=== PATIENT | male | born 1940 | race Caucasian/White ===

== ENCOUNTER 2016-08-05 14:55 | Emergency (ER) | payer OTHER ==
[2016-08-05 14:59] VITALS: RESP 18; TEMP 98.1
--- NOTE | 2016-08-05 15:07 | CPEKG ---
Heart Rate: 94 RR Interval: 638 QRSD Interval: 98 QT Interval: 416 QTC Interval: 521 QRS [place]: 7 T Wave [place]: 56 EKG Severity - ABNORMAL ECG - EKG Impression: ATRIAL FLUTTER, A-RATE 272 EKG Impression: BORDERLINE INFERIOR Q WAVES EKG Impression: BORDERLINE PROLONGED QT INTERVAL Electronically Signed By: Sofia Kern 05-Aug-2016 23:00:17
--- NOTE | 2016-08-05 15:57 | CPEKG ---
Heart Rate: 79 RR Interval: 759 P-R Interval: 192 QRSD Interval: 82 QT Interval: 380 QTC Interval: 436 P [place]: 63 QRS [place]: 14 T Wave [place]: 51 EKG Severity - NORMAL ECG - EKG Impression: SINUS RHYTHM Electronically Signed By: Sofia Kern 05-Aug-2016 23:00:17
--- NOTE | 2016-08-05 16:08 | EDPHY ---
H & P Time Seen by Provider: 08/05/16 15:45 HPI/ROS: CHIEF COMPLAINT: Palpitations HISTORY OF PRESENT ILLNESS: The patient is a 76-year-old male who presents emergency department with palpitations. He states he has a history of atrial fibrillation. He has had ablation x3. He currently takes propranolol 20 mg twice daily. Patient states he forgot to take his propranolol this morning. He took his 1st dose of propranolol at lunchtime. At 2:00 p.m. his symptoms started. He took a 2nd dose of propranolol 20 mg. Patient describes palpitations with no chest pain or shortness of breath. No nausea, vomiting or diaphoresis. Patient has had some mild left shoulder tingling. He is not sure if it is from the palpitations or from helping his friend move recently. No leg pain or swelling. No recent alcohol use. When I evaluated the patient he denies palpitations. His symptoms have resolved. REVIEW OF SYSTEMS: My complete review of systems is negative except as mentioned in the HPI. Past Medical/Surgical History: Atrial fibrillation Past surgical history: Includes ablation Social history: The patient drinks occasionally. Smoking Status: Never smoked Physical Exam: Vitals noted. Heart rate 124. 111/65. Triage When I entered the room the patient appeared to be in sinus rhythm. His heart rate was in the 80s. GENERAL: Well-appearing, in no acute distress, alert. HEENT: Eyes normal to inspection, normal pharynx, no signs of dehydration. NECK: No thyromegaly, no lymphadenopathy, supple. RESPIRATORY: Clear to auscultation bilaterally, no rales, rhonchi or wheezing. CVS: Regular rate and rhythm, no rubs, murmurs, or gallops. ABDOMEN: Soft, nontender, nondistended, no organomegaly. BACK: Normal to inspection, no CVA tenderness. SKIN: Normal color, no rash, warm, dry. No pallor. EXTREMITIES: No pedal edema, no calf tenderness, no Homans sign or cords, no joint swelling. NEURO/PSYCH: Alert and oriented, normal mood and affect, normal motor sensory exam. Constitutional: Initial Vital Signs Temperature (C) 36.7 C 08/05/16 14:56 Heart Rate 124 H 08/05/16 14:56 Respiratory Rate 18 08/05/16 14:56 Blood Pressure 111/65 08/05/16 14:56 O2 Sat (%) 93 08/05/16 14:56 O2 Delivery Mode Room Air Allergies/Adverse Reactions: No Known Allergies Allergy (Unverified 08/05/16 14:59) Home Medications: Medication Instructions Recorded Aspirin [Aspirin 81mg (*)] 162 mg PO DAILY 08/05/16 Propranolol HCl [Inderal 40mg (*)] 40 mg PO 08/05/16 Simvastatin [Zocor] 40 mg PO 08/05/16 Medical Decision Making ED Course/Re-evaluation: In the emergency department I discussed possible etiologies with the patient. Patient had initial EKG and then a repeat when he felt his symptoms resolved. EKG shows atrial flutter at 94, normal axis, normal intervals]. There are no ST or T-wave abnormalities. Repeat EKG: EKG shows normal sinus rhythm, normal rate, normal axis, normal intervals. There are no ST or T-wave abnormalities. EKG is normal as interpreted by me. I discussed the case with Dr. Quintana. She feels comfortable having the patient discharged home if his laboratory studies are normal. She will discuss anticoagulation with the patient. Patient's laboratory studies were unremarkable. Troponin was negative. 1640: I discussed the results with the patient. I answered all his questions. He feels comfortable with discharge. He will follow up with Dr. Quintana. Differential Diagnosis: My differential includes but is not limited to atrial fibrillation, atrial flutter, missed medication dose, electrolyte abnormality, sugar abnormality, ACS , acute OR, pulmonary embolus, thyroid disease - Data Points Laboratory Results: Laboratory Results 08/05/16 15:05 08/05/16 15:05 08/05/16 08/05/16 15:05 15:05 WBC 5.94 10^3/uL 10^3/uL (3.80-9.50) RBC 5.23 10^6/uL 10^6/uL (4.40-6.38) Hgb 16.0 g/dL g/dL (13.7-17.5) Hct 48.0 % % (40.0-51.0) MCV 91.8 fL fL (81.5-99.8) MCH 30.6 pg pg (27.9-34.1) MCHC 33.3 g/dL g/dL (32.4-36.7) RDW 13.0 % % (11.5-15.2) Plt Count 186 10^3/uL 10^3/uL (150-400) MPV 10.8 fL fL (8.7-11.7) Neut % (Auto) 62.1 % % (39.3-74.2) Lymph % (Auto) 21.0 % % (15.0-45.0) [place] % (Auto) 12.5 % % (4.5-13.0) Eos % (Auto) 2.5 % % (0.6-7.6) Baso % (Auto) 1.2 % % (0.3-1.7) Nucleat RBC Rel Count 0.0 % % (0.0-0.2) Absolute Neuts (auto) 3.69 10^3/uL 10^3/uL (1.70-6.50) Absolute Lymphs (auto) 1.25 10^3/uL 10^3/uL (1.00-3.00) Absolute Monos (auto) 0.74 10^3/uL 10^3/uL (0.30-0.80) Absolute Eos (auto) 0.15 10^3/uL 10^3/uL (0.03-0.40) Absolute Basos (auto) 0.07 10^3/uL 10^3/uL (0.02-0.10) Absolute Nucleated RBC 0.00 10^3/uL 10^3/uL (0-0.01) Immature Gran % 0.7 % % (0.0-1.1) Immature Gran # 0.04 10^3/uL 10^3/uL (0.00-0.10) Sodium 140 mEq/L mEq/L (134-144) Potassium 4.0 mEq/L mEq/L (3.5-5.2) Chloride 102 mEq/L mEq/L (97-110) Carbon Dioxide 26 mEq/l mEq/l (22-31) Anion Gap 12 mEq/L mEq/L (8-16) BUN 20 mg/dL mg/dL (7-23) Creatinine 1.0 mg/dL mg/dL (0.7-1.3) Estimated GFR > 60 Glucose 115 mg/dL H mg/dL (70-100) Calcium 9.8 mg/dL mg/dL (8.5-10.4) Troponin I < 0.012 ng/mL ng/mL (0-0.034) Departure - Departure Disposition: Home, Routine, Self-Care Clinical Impression: Palpitations Atrial flutter Qualifiers: Atrial flutter type: typical Qualified Code(s): I48.3 - Typical atrial flutter Condition: Good Instructions: Atrial Flutter (ED), Palpitations (ED) Additional Instructions: Return with increasing chest pain, shortness of breath, sweating, lightheadedness, dizziness, palpitations or any other concerns. Referrals: Joselyn Lozoya MD [Primary Care Provider] - As per Instructions Gloria Quintana MD [Medical Doctor] - 5-7 days, if not improved
[2016-08-05 16:16] LABS: % IMMATURE GRANULYOCYTES 0.7 % (0.0-1.1); ABSOLUTE IMMATURE GRANULOCYTES 0.04 10^3/uL (0.00-0.10); ADD DIFF? NO; ADD MORPH? NO; ADD SCAN? NO; ATYPICAL LYMPHOCYTE FLAG 0 (0-99); FRAGMENT RBC FLAG 0 (0-99); LEFT SHIFT FLG 0 (0-99); LIPEMIA HEMOLYSIS FLAG 80 (0-99); MEAN CELL HEMOGLOBIN 30.6 pg (27.9-34.1); MEAN CELL HEMOGLOBIN CONCENTR. 33.3 g/dL (32.4-36.7); MEAN CELL VOLUME 91.8 fL (81.5-99.8); MEAN PLATELET VOLUME 10.8 fL (8.7-11.7); PLATELET CLUMPS FLAG 10 (0-99); PLATELET COUNT 186 10^3/uL (150-400); RED BLOOD CELL COUNT 5.23 10^6/uL (4.40-6.38)
[2016-08-05 16:26] LABS: ANION GAP 12 mEq/L (8-16); CALCIUM 9.8 mg/dL (8.5-10.4); CARBON DIOXIDE 26 mEq/l (22-31); CHLORIDE 102 mEq/L (97-110); GLOMERULAR FILTRATION RATE > 60; GLUCOSE 115 mg/dL (70-100); SODIUM 140 mEq/L (134-144)
[2016-08-05 16:37] LABS: TROPONIN I < 0.012 ng/mL (0-0.034)
[2016-08-05 16:57] VITALS: O2SAT 94
[2016-08-05 16:58] VITALS: BP 116/62; PULSE 76
== END 2016-08-05 16:58 | disposition home or self-care (01) ==
DX: I48.3 Typical atrial flutter (principal); Z79.82 Long term (current) use of aspirin

== ENCOUNTER 2016-08-15 08:10 | Day surgery (SDC) | payer OTHER ==
[2016-08-15] MEDS ORDERED: NS 1,000 ML IV ONE (08:11)
[2016-08-15] MEDS ORDERED: DIAZEPAM 5 MG TAB PO ONE (08:11)
[2016-08-15] MEDS ORDERED: ASPIRIN EC 325 MG TAB PO ONE ×2 (08:11→08:39)
[2016-08-15] MEDS ORDERED: diphenhydrAMINE 25 MG CAP PO ONE ×2 (08:11→08:39)
[2016-08-15] MEDS ORDERED: FAMOTIDINE 20 MG TAB PO ONE (08:11)
--- NOTE | 2016-08-15 08:33 | CPEKG ---
Heart Rate: 76 RR Interval: 789 QRSD Interval: 78 QT Interval: 384 QTC Interval: 432 QRS [place]: 14 T Wave [place]: 36 EKG Severity - ABNORMAL ECG - EKG Impression: ATRIAL FIBRILLATION Electronically Signed By: Imelda Martinez 15-Aug-2016 17:10:33
[2016-08-15] MEDS ORDERED: FAMOTIDINE 20 MG TAB ONE (08:39)
[2016-08-15] MEDS ORDERED: DIAZEPAM 5 MG TAB ONE (08:40)
[2016-08-15 08:50] LABS: % IMMATURE GRANULYOCYTES 0.6 % (0.0-1.1); ABSOLUTE IMMATURE GRANULOCYTES 0.03 10^3/uL (0.00-0.10); ADD DIFF? NO; ADD MORPH? NO; ADD SCAN? NO; ATYPICAL LYMPHOCYTE FLAG 0 (0-99); FRAGMENT RBC FLAG 0 (0-99); HEMATOCRIT 47.1 % (40.0-51.0); HEMOGLOBIN 15.6 g/dL (13.7-17.5); LEFT SHIFT FLG 0 (0-99); LIPEMIA HEMOLYSIS FLAG 80 (0-99); MEAN CELL HEMOGLOBIN 30.1 pg (27.9-34.1); MEAN CELL HEMOGLOBIN CONCENTR. 33.1 g/dL (32.4-36.7); MEAN CELL VOLUME 90.9 fL (81.5-99.8); MEAN PLATELET VOLUME 10.4 fL (8.7-11.7); PLATELET CLUMPS FLAG 30 (0-99); PLATELET COUNT 193 10^3/uL (150-400); RED BLOOD CELL COUNT 5.18 10^6/uL (4.40-6.38)
[2016-08-15 09:16] LABS: ANION GAP 10 mEq/L (8-16); CALCIUM 9.2 mg/dL (8.5-10.4); CARBON DIOXIDE 23 mEq/l (22-31); CHLORIDE 108 mEq/L (97-110); CHOLESTEROL 108 mg/dL (140-220); CHOLESTEROL/HDL RATIO 3.27 RATIO (1.00-4.97); CREATININE 0.9 mg/dL (0.7-1.3); GLOMERULAR FILTRATION RATE > 60; GLUCOSE 99 mg/dL (70-100); HIGH DENSITY LIPOPROTEIN 33 mg/dL (40-65); LDL/HDL RATIO 1.64 RATIO (1.00-3.64); LOW DENSITY LIPOPROTEIN 54 mg/dL (80-100); MAGNESIUM 2.1 mg/dL (1.6-2.3); NON-HIGH DENSITY LIPOPROTEIN 75 mg/dL (90-129); POTASSIUM 4.5 mEq/L (3.5-5.2); SODIUM 141 mEq/L (134-144); TRIGLYCERIDE 106 mg/dL (40-150); VERY LOW DENSITY LIPOPROTEINS 21 mg/dL (8-25)
[2016-08-15 09:17] LABS: INR 1.07 (0.83-1.16); PROTIME(PATIENT) 13.8 SEC (12.0-15.0)
[2016-08-15] MEDS ORDERED: LIDOCAINE 1% 30 ML SDV ONE (10:28)
[2016-08-15] MEDS ORDERED: VERAPAMIL 5 MG/2 ML VIAL ONE (10:29)
[2016-08-15] MEDS ORDERED: fentaNYL 100 MCG/2 ML INJ ONE (10:29)
[2016-08-15] MEDS ORDERED: MIDAZOLAM 2 MG/2 ML VIAL ONE (10:29)
[2016-08-15] MEDS ORDERED: HEPARIN 10,000 UNIT/10 ML MDV ONE (10:29)
[2016-08-15] MEDS ORDERED: IOPAMIDOL (ISOVUE-370) 150 ML BTL IV ONE ×2 (10:30→11:08)
--- NOTE | 2016-08-15 21:03 | CPIP ---
[f rep st] INVASIVE CARDIAC PROCEDURE DATE OF PROCEDURE: 08/15/2016 PROCEDURE: 1. Left heart catheterization. 2. Coronary angiography. 3. Left ventriculography. INDICATIONS: Abnormal stress test with ST changes and chest pain. COMPLICATIONS: None apparent. DESCRIPTION OF PROCEDURE: N.p.o. status was confirmed, informed consent obtained, and timeout perfo rmed. The patient was brought to the catheterization laboratory and prepped and draped in sterile f ashion. 1% lidocaine was used for local anesthesia in the right wrist. Adequate conscious sedation was achieved with Versed and fentanyl IV. AR-1 catheter was used for right coronary angiography. A JL3.5 was used for left coronary angiography. Pigtail catheter was used for left ventriculography . FINDINGS: 1. Left main is normal and bifurcates into the LAD and circumflex system. The LAD is large with 2 principal diagonals. There is minimal plaquing in proximal LAD and a proximal diagonal without flow -limiting stenosis. 2. The left circumflex is dominant. There is one large obtuse marginal. The left circumflex is do minant. There is no flow-limiting coronary disease in the circumflex or its branches. 3. The right coronary is small and non dominant. Sub-selective coronary angiography exhibits no fl ow-limiting disease. LEFT VENTRICULOGRAPHY: Left ventricular ejection fraction is normal at 70% with normal wall motion. Visualized portions of the thoracic aorta are normal. There is no significant mitral regurgitatio n. HEMODYNAMICS: LV pressure 117/5 with an end-diastolic pressure of 12. Aortic pressure is 117/61. There is no aortic stenosis. CONCLUSIONS: 1. Minimal coronary artery disease in this left dominant system. 2. Normal left heart pressures. 3. Normal left ventricular systolic function. 4. Patient's radial arteriotomy site was sealed with a TR band. He was taken to [facility] in stable condition. Results discussed with the patient's . Continue manag ement of his arrhythmia and consider alternative to propranolol, as he may have beta-moreno intoler ance as an explanation for his exertional chest discomfort. /[id number]/MODL
== END 2016-08-15 16:28 | disposition home or self-care (01) ==
LOC: FCATH 08:10
PROVIDERS: ATTEND Internal Medicine Cardiovascular Disease
DX: R07.9 Chest pain, unspecified (principal); E78.5 Hyperlipidemia, unspecified; R94.39 Abnormal result of other cardiovascular function study; I48.92 Unspecified atrial flutter; I47.1 Supraventricular tachycardia; E03.9 Hypothyroidism, unspecified; K57.90 Diverticulosis of intestine, part unspecified, without perforation or abscess without bleeding; R73.03 Prediabetes; Z79.82 Long term (current) use of aspirin; Z85.46 Personal history of malignant neoplasm of prostate
CPT/HCPCS: 93005; 93458; C1769; J1644; J2250; J3010; Q9967

== ENCOUNTER → 2016-10-04 | Outpatient (CLI) | payer OTHER | LOC: FIMAGING 10:40 | PROVIDERS: ATTEND Internal Medicine Geriatric Medicine | DX: M41.84 Other forms of scoliosis, thoracic region (principal); Q76.49 Other congenital malformations of spine, not associated with scoliosis; M25.552 Pain in left hip; Z85.46 Personal history of malignant neoplasm of prostate ==

== ENCOUNTER → 2016-10-22 | Outpatient (CLI) | payer OTHER | LOC: FIMAGING 07:57 | PROVIDERS: ATTEND Internal Medicine Geriatric Medicine | DX: M41.26 Other idiopathic scoliosis, lumbar region (principal); M51.26 Other intervertebral disc displacement, lumbar region; M48.06 Spinal stenosis, lumbar region ==

== ENCOUNTER 2018-05-20 16:52 | Emergency (ER) | payer OTHER ==
--- NOTE | 2018-05-20 17:09 | EDPHY ---
HPI/HX/ROS/PE/MDM Narrative: CHIEF COMPLAINT: Racing heart rate HPI: This patient is an anticoagulated 77-year-old male with history of atrial fibrillation s/p ablation 5 years ago, hyperlipidemia. He has had no issues with tachycardia or irregular heart rate since his ablation until this week. He complains of an episode of racing heart rate beginning 2-3 hours ago. He had a similar episode two days ago and yesterday, and his Apple Watch recorded his heart rate at 130 while he was at rest. He was able to relieve his symptoms by lying down and relaxing. Today however, the sensation persists, and he presents for evaluation. The patient follows up with Dr. Quintana, online communications specialist, and is currently taking Bystolic, Eliquis, and Simvastatin. He does not have any medications for urgent rate control any more, but used to take Propranolol. He denies any chest pain currently, just a "thumping" sensation in his chest. No shortness of breath, lightheadedness, nausea, or other associated symptoms. He denies any recent trauma or illness. REVIEW OF SYSTEMS: A comprehensive 10 system review of systems is otherwise negative aside from elements mentioned in the history of present illness and medical decision making. PMH: Atrial fibrillation s/p ablation 5 years ago. Hyperlipidemia. SOCIAL HISTORY: . Employed. Lives in [place]. PHYSICAL EXAM: General:Patient is alert, in no acute distress. ENT:Eyes are normal to inspection. ENT inspection normal. Neck: Normal inspection. Full range of motion. Respiratory:No respiratory distress. Breath sounds normal bilaterally. Cardiovascular: Regular tachycardia. Strong peripheral pulses. Normal cap refill. Abdomen:The abdomen is nontender to palpation. There are no peritoneal signs. There are normal bowel sounds. Back: Normal to inspection. No tenderness to palpation. Skin: Normal color. No rash. Warm and dry. Extremities: Normal appearance. Full range of motion. Neuro: Oriented x3. Normal motor function. Normal sensory function. ED Course: 77-year-old male presents with SVT ongoing for 2-3 hours. Plan for EKG. 17:16 Performed Valsalva maneuver x 2 directly following my interview with this patient. Heart rate decreased to 70. Patient felt instant relief. 17:27 Rapid heart rate recurred. Plan for repeat EKG. Plan for labs including POC troponin, CBC, chemistries, TSH. EKG was ordered and interpreted by myself. Please see [employer] system for official reading. 17:[address] Saldivar, online communications specialist. Plan to administer 5mg IV metoprolol and 10mg PO Bystolic here in the emergency department. This patient can follow up with his online communications specialist, Dr. Quintana, outpatient, pending the results of his other tests and successful rate control. POC troponin negative at 0.03. Labs otherwise completely unremarkable. TSH within normal limits. 19:00 Patient is in sinus rhythm, rate 66. He currently feels well. Plan to discharge home in good condition. He will call his online communications specialist tomorrow morning for an appointment and increase his Bystolic dosage to 20mg QD until follow up. Follow up and return precautions discussed. The patient is comfortable with this plan. - Data Points Laboratory Results: Laboratory Results 05/20/18 17:20 05/20/18 17:20 19 05/20/18 17:20 17:20 WBC 4.96 10^3/uL 10^3/uL (3.80-9.50) RBC 4.95 10^6/uL 10^6/uL (4.40-6.38) Hgb 14.9 g/dL g/dL (13.7-17.5) Hct 45.4 % % (40.0-51.0) MCV 91.7 fL fL (81.5-99.8) MCH 30.1 pg pg (27.9-34.1) MCHC 32.8 g/dL g/dL (32.4-36.7) RDW 14.5 % % (11.5-15.2) Plt Count 196 10^3/uL 10^3/uL (150-400) MPV 10.8 fL fL (8.7-11.7) Neut % (Auto) 53.3 % % (39.3-74.2) Lymph % (Auto) 30.4 % % (15.0-45.0) [place] % (Auto) 13.1 % H % (4.5-13.0) Eos % (Auto) 1.2 % % (0.6-7.6) Baso % (Auto) 1.4 % % (0.3-1.7) Nucleat RBC Rel Count 0.4 % H % (0.0-0.2) Absolute Neuts (auto) 2.64 10^3/uL 10^3/uL (1.70-6.50) Absolute Lymphs (auto) 1.51 10^3/uL 10^3/uL (1.00-3.00) Absolute Monos (auto) 0.65 10^3/uL 10^3/uL (0.30-0.80) Absolute Eos (auto) 0.06 10^3/uL 10^3/uL (0.03-0.40) Absolute Basos (auto) 0.07 10^3/uL 10^3/uL (0.02-0.10) Absolute Nucleated RBC 0.02 10^3/uL H 10^3/uL (0-0.01) Immature Gran % 0.6 % % (0.0-1.1) Immature Gran # 0.03 10^3/uL 10^3/uL (0.00-0.10) Sodium 138 mEq/L mEq/L (135-145) Potassium 4.1 mEq/L mEq/L (3.5-5.2) Chloride 107 mEq/L mEq/L (97-110) Carbon Dioxide 23 mEq/l mEq/l (22-31) Anion Gap 8 mEq/L mEq/L (6-14) BUN 21 mg/dL mg/dL (7-23) Creatinine 0.9 mg/dL mg/dL (0.7-1.3) Estimated GFR > 60 Glucose 116 mg/dL H mg/dL (70-100) Calcium 9.2 mg/dL mg/dL (8.5-10.4) TSH 2.730 uIU/mL uIU/mL (0.465-4.680) Medications Given: Discontinued Medications Sodium Chloride (Ns) 500 mls @ 1,000 mls/hr IV EDNOW ONE PRN Reason: Protocol Stop: 05/20/18 18:04 Last Admin: 05/20/18 17:41 Dose: 500 mls Metoprolol Tartrate (Lopressor Injection) 5 mg IVP EDNOW ONE Stop: 05/20/18 17:34 Last Admin: 05/20/18 17:41 Dose: 5 mg Nebivolol (Bystolic) 10 mg PO EDNOW ONE Stop: 05/20/18 17:34 Last Admin: 02/18/19 17:53 Dose: 10 mg General Time Seen by Provider: 05/20/18 16:54 Initial Vital Signs: Initial Vital Signs Temperature (C) 36.8 C 05/20/18 16:58 Heart Rate 82 05/20/18 16:58 Respiratory Rate 16 05/20/18 16:58 Blood Pressure 141/92 H 05/20/18 16:58 O2 Sat (%) 97 05/20/18 16:58 O2 Delivery Mode Room Air Allergies/Adverse Reactions: No Known Allergies Allergy (Unverified 05/20/18 16:57) Home Medications: Medication Instructions Recorded Aspirin [Aspirin 81mg (*)] 81 mg PO DAILY 08/05/16 Propranolol HCl [Inderal 40mg (*)] 20 mg PO BID 08/05/16 Simvastatin [Zocor] 40 mg PO DAILY 08/05/16 Fish Oil 08/15/16 Levothyroxine 50 mcg PO DAILY 08/15/16 Vit C/Vit E AC/Lut/Copper/Zinc 08/15/16 [Preservision Lutein Softgel] Eliquis 05/20/18 Departure - Departure Disposition: Home, Routine, Self-Care Clinical Impression: Supraventricular tachycardia Condition: Good Instructions: Supraventricular Tachycardia (ED), Valsalva Maneuver (ED) Additional Instructions: Follow up with your online communications specialist this week. Call first thing tomorrow morning for an appointment. Increase your daily Bystolic dose to 20mg each morning until you follow up with Dr. Quintana. Return to the emergency department for recurrence of symptoms, chest pain, shortness of breath, or other worsening of condition. Referrals: Joselyn Lozoya MD [Primary Care Provider] - As per Instructions Gloria Quintana MD [Medical Doctor] - As per Instructions Report Scribed for: Lan Valiente Report Scribed by: Robyn Wakefield Date of Report: 05/20/18 Time of Report: 17:19 Physician Review and Approval Statement: Portions of this note were transcribed by an ED scribe. I personally performed the history, physical exam, and medical decision making; and confirm the accuracy of the information in the transcribed note.
[2018-05-20] MEDS ORDERED: NEBIVOLOL HCL 5 MG TAB PO ONE (17:33)
[2018-05-20] MEDS ORDERED: METOPROLOL TARTRATE 5 MG/5 ML INJ IVP ONE (17:33)
[2018-05-20] MEDS ORDERED: NS 500 ML IV ONE (17:35)
[2018-05-20 17:45] LABS: PLATELET COUNT 196 10^3/uL (150-400)
[2018-05-20 19:23] VITALS: BP 131/86
== END 2018-05-20 19:23 | disposition home or self-care (01) ==
DX: I47.1 Supraventricular tachycardia (principal); E86.9 Volume depletion, unspecified
CPT/HCPCS: 84484-ER; 96374